=== PATIENT | male | born 1990 | race Caucasian/White ===

== ENCOUNTER → 2023-04-10 | Day surgery (SDC) | payer BC ==
[~2023-04-10] VITALS: Ht 193 cm; Wt 138.0 kg
[~2023-04-10] MED LIST: ACETAMINOPHEN 1000MG 100ML IV BAG As Ordered ONE; ISOVUE-370 76% 100ML VIAL As Ordered ONE; KETOROLAC 30 MG/ML 1ML VIAL IV ONE; KETOROLAC 60MG 2ML VIAL As Ordered ONE; LIDOCAINE 2% 100MG/5ML SDV (FOR ANES.) As Ordered ONE; MED REC IN PROGRESS XX SCH; MIDAZOLAM INJ 2MG/2ML VIAL As Ordered ONE; NORCO, ANEXSIA 5/325MG TABLET (HYDROcodone/ACETAMINOPHEN) PO PRN; NS 1,000 ML IV ONE; ONDANSETRON 4MG 2ML VIAL As Ordered ONE; PHENYLEPHRINE 0.5% NASAL SPRAY 15 ML As Ordered ONE; PIPERACILLIN/TAZOBACTAM SOD 3.375 GM in D5W MINI-BAG PLUS 50 ML IV ONE; ROCURONIUM BROMIDE 50MG/5ML VIAL As Ordered ONE; SUGAMMADEX SODIUM 500 MG/5 ML VIAL (BRIDION) As Ordered ONE; fentaNYL 250 MCG/5 ML INJECTION As Ordered ONE; propofoL 200 MG/20 ML VIAL As Ordered ONE
[2023-04-10 12:45] LABS: BASO # 0.1 10^3/uL (0.0-0.2); BASO % 0.3 % (0.0-1.0); EOS # 0.2 10^3/uL (0.0-0.5); EOS % 1.4 % (0.0-3.0); HEMATOCRIT 45.5 % (42.0-52.0); HEMOGLOBIN 15.9 g/dl (13.5-17.5); LYMPH # 2.8 10^3/uL (1.5-5.0); LYMPH % 18.9 % (24.0-44.0); MEAN CORPUSCULAR HEMOGLOBIN 29.3 pg (27.0-33.0); MEAN CORPUSCULAR HGB CONC 34.9 g/dl (32.0-36.5); MEAN CORPUSCULAR VOLUME 83.8 fl (80.0-96.0); NEUTROPHILS # 10.5 10^3/uL (1.5-8.5); NEUTROPHILS % 72.1 % (36.0-66.0); PLATELET COUNT, AUTOMATED 283 10^3/uL (150-450); RED BLOOD COUNT 5.43 10^6/uL (4.30-6.10); WHITE BLOOD COUNT 14.6 10^3/uL (4.0-10.0)
[2023-04-10 13:16] LABS: LIPASE 33 U/L (12-53)
[2023-04-10 13:18] LABS: ALBUMIN 4.1 G/DL (3.2-5.2); ALKALINE PHOSPHATASE 70 U/L (46-116); ALT/SGPT 27 U/L (7.0-40); AST/SGOT 20 U/L (<34); BILIRUBIN,DIRECT 0.4 MG/DL (<0.4); BLOOD UREA NITROGEN 17 MG/DL (9-23); CALCIUM LEVEL 9.1 MG/DL (8.5-10.1); CARBON DIOXIDE LEVEL 29 MMOL/L (20-31); CHLORIDE LEVEL 105 MMOL/L (98-107); CREATININE FOR GFR 1.22 MG/DL (0.70-1.30); GLOMERULAR FILTRATION RATE > 60.0 (>60); GLUCOSE, FASTING 97 MG/DL (60-100); POTASSIUM SERUM 4.4 MMOL/L (3.5-5.1); SODIUM LEVEL 139 MMOL/L (136-145); TOTAL PROTEIN 7.5 G/DL (5.7-8.2)
[2023-04-10 13:19] LABS: RSV AMPLIFICATION NEGATIVE (NEGATIVE)
[2023-04-10 16:35] VITALS: TEMP 97.1
[2023-04-10 17:11] VITALS: BP 125/73; O2SAT 100
== END | disposition home or self-care (01) ==
LOC: M ED 11:33 → M SDC 11:34
PROVIDERS: ATTEND Surgery
DX: K35.80 Unspecified acute appendicitis (principal)
CPT/HCPCS: 44970; 74177; 80048; 80076; 83690; 85025; 87631; 88304; 96365; 96375; 99284; J0131; J0665; J1100; J1885; J2250; J2405; J2543; J3010; Q9967